=== PATIENT | male | born 1975 | race Caucasian/White ===

== ENCOUNTER 2017-10-16 09:51 | Day surgery (SDC) | payer OTHER ==
[2017-10-09 15:37] VITALS: BMI 42.8
[2017-10-16] MEDS ORDERED: MIDAZOLAM HCL 2 MG/2 ML SINGLE DOSE VIAL ONE (10:23)
[2017-10-16] MEDS ORDERED: ONDANSETRON 4 MG/2 ML VIAL ONE (11:36)
[2017-10-16] MEDS ORDERED: ceFAZolin SODIUM 1 GM VIAL ONE (11:36)
[2017-10-16] MEDS ORDERED: DEXAMETHASONE SOD PHOSPHATE 4 MG/1 ML VIAL ONE (11:36)
[2017-10-16] MEDS ORDERED: KETOROLAC TROMETHAMINE 30 MG/1 ML VIAL ONE (11:36)
[2017-10-16] MEDS ORDERED: HYDROmorphone HCL/PF 1 MG/ML VIAL (FOR PYXIS CHARGING ONLY) ONE (11:51)
[2017-10-16] MEDS ORDERED: GUM MASTIC/STORAX/MSAL/ALCOHOL 1 DRP DROPSBTL MC ONE (12:02)
[2017-10-16] MEDS ORDERED: BUPIVACAINE HCL/PF 0.25% (2.5MG/ML) 10 ML VIAL IJ ONE (12:08)
[2017-10-16 13:28] VITALS: TEMP 98.2
[2017-10-16 13:54] VITALS: BP 126/74
[2017-10-16 13:57] VITALS: PULSE 68
[2017-10-16] MEDS ORDERED: ONDANSETRON 4 MG/2 ML VIAL IVPUSH PRN (14:52)
[2017-10-16] MEDS ORDERED: oxyCODONE HCL 5 MG TABLET PO PRN (14:52)
[2017-10-16] MEDS ORDERED: LACTATED RINGERS SOLUTION 1,000 ML IV SCH (15:00)
--- NOTE | 2017-10-17 07:59 | OP ---
DATE OF OPERATION: 10/16/2017 PREOPERATIVE DIAGNOSIS: Left lateral epicondylitis. POSTOPERATIVE DIAGNOSIS: Left lateral epicondylitis. OPERATIVE PROCEDURE: Left lateral epicondylitis debridement with repair of extensor tendon. SURGEON: Ariana Pinedo MD YARD MANAGER: STEFAN Gastelum ANESTHESIA: General. COMPLICATIONS: None. BLOOD LOSS: Minimal. INDICATIONS: The patient is a 42-year-old male with chronic left lateral epicondylitis refractory to nonoperative treatment. He was indicated for operative treatment. The risks, benefits, and alternatives were discussed with the patient at length. Proper informed consent was obtained. DESCRIPTION OF PROCEDURE: After proper identification of the patient and the correct operative site, the patient was brought to the operating room and placed supine on the operating table. All bony prominences were well padded. General anesthesia was provided by the anesthesiologist. Left upper extremity was prepped and draped in the usual sterile fashion. A well-padded tourniquet was placed with a sterile prep. Esmarch bandage used to exsanguinate the left upper extremity. Tourniquet inflated to 250 mmHg. A longitudinal incision was made over the lateral aspect of the elbow. Incision was taken sharply through the skin with blunt and sharp dissection through subcutaneous tissues. Interval between the extensor carpi radialis longus and the extensor digitorum communis was developed, and the extensor carpi radialis brevis was identified and found to be severely degenerated with significant partial tearing. This was debrided down to the lateral epicondyle, which was also debrided, and then, the extensor tendon was repaired back down to the bone using a 2-0 Vicryl suture. Wound was repaired in layers using 4-0 Vicryl and 4-0 Monocryl. Sterile dressings were applied. The patient was reversed from anesthesia and brought to the recovery room in stable condition. He tolerated the procedure well. Fox Coleman, the dental assistant teacher, was integral throughout the procedure. Procedure could not have been performed without a skilled operative dental assistant teacher. ARIANA PINEDO M.D. MITALI/[id number]
--- NOTE | 2017-10-18 17:47 | PATH ---
Surgical Pathology Report Patient Name: CHANDA MEDRANO Med. Rec. #: [id number] /Age/Gender: 1975 (Age: 42) / M Account: [id number] Location: [facility] AMBULATORY Taken: 10/16/2017 Received: 10/16/2017 Reported: 10/18/2017 Physicians: Juan Ha M.D. Specimen(s) Received LEFT LATERAL EPICONDYLE TISSUE Clinical History Left lateral epicondylitis Final Diagnosis EPICONDYLE TISSUE, LEFT LATERAL, DEBRIDEMENT AND REPAIR: FIBROCOLLAGENOUS AND FIBROSYNOVIAL TISSUE. Electronically Signed Aminah Reyes M.D. Gross Description Received in formalin labeled "left lateral epicondylitis," is a 1.8 x 1.1 x 0.3 cm duval-yellow, irregular portion of fibrous tissue. The specimen is serially sectioned and entirely submitted in one cassette. 10/17/201710/17/2017
== END 2017-10-16 13:58 | disposition home or self-care (01) ==
LOC: FASU 09:51
PROVIDERS: ATTEND Orthopaedic Surgery Hand Surgery
PROC: 0MQ40ZZ Repair Left Elbow Bursa and Ligament, Open Approach (ICD-10-PCS; principal; 2017-10-16 11:35)
DX: M77.12 Lateral epicondylitis, left elbow (principal)
CPT/HCPCS: 88304-TC; 94760